=== PATIENT | male | born 1985 | race Caucasian/White ===

== ENCOUNTER 2018-03-20 21:47 | Emergency (ER) | payer BC ==
[2018-03-20] MEDS ORDERED: Bupivacaine 0.5% 30 ML SDV INFILT ONE (21:48)
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
[2018-03-20] MEDS ORDERED: ceFAZolin 1,000 MG VIAL IM STA (22:52)
[2018-03-20] MEDS ORDERED: ceFAZolin 1 GM Vial ONE (23:01)
[2018-03-20] MEDS ORDERED: cefTRIAXone 1,000 MG VIAL IM ONE (23:08)
[2018-03-20] MEDS ORDERED: Levofloxacin 250 MG Tab PO STA (23:27)
--- NOTE | 2018-03-21 11:38 | CR ---
INDICATION: Foreign body in right hand. RIGHT HAND: Frontal and lateral views of the right hand revealed a portion of a nail embedded in the palm of the hand at the third and fourth metacarpals distally, extending into the dorsal portion of the palm. Soft tissue swelling is noted about the hand, especially noted dorsally. Ventral swelling is also present. A definite fracture site or dislocation was not seen. MTDD
== END 2018-03-21 00:10 | disposition home or self-care (01) ==
LOC: FB.ED 21:47
DX: S61.441A Puncture wound with foreign body of right hand, initial encounter (principal); L08.9 Local infection of the skin and subcutaneous tissue, unspecified; F10.129 Alcohol abuse with intoxication, unspecified; W19.XXXA Unspecified fall, initial encounter; W22.8XXA Striking against or struck by other objects, initial encounter; Y92.009 Unspecified place in unspecified non-institutional (private) residence as the place of occurrence of the external cause; Z88.0 Allergy status to penicillin; Z79.899 Other long term (current) drug therapy; W26.8XXA Contact with other sharp object(s), not elsewhere classified, initial encounter
CPT/HCPCS: 73120; 99283; A9270

== ENCOUNTER 2020-03-07 22:49 | Emergency (ER) | payer BC, OTHER ==
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
== END 2020-03-08 00:03 | disposition home or self-care (01) ==
LOC: FB.ED 22:49
DX: S50.11XA Contusion of right forearm, initial encounter (principal); Z88.0 Allergy status to penicillin; F17.210 Nicotine dependence, cigarettes, uncomplicated; V58.6XXA Passenger in pick-up truck or van injured in noncollision transport accident in traffic accident, initial encounter
CPT/HCPCS: 73090-RT; 99284-25